=== PATIENT | female | born 1995 | race Caucasian/White ===

== ENCOUNTER 2018-09-08 01:19 | Emergency (ER) | payer SELFPAY ==
[~2018-09-08] VITALS: Ht 157.5 cm; Wt 95.8 kg
[2018-09-08 01:26] VITALS: BP 139/95; PULSE 119; RESP 18; Ht 157.5 cm; Wt 95.8 kg
== END 2018-09-08 04:09 | disposition left against medical advice (07) ==
LOC: FTE 01:19
DX: Z53.21 Procedure and treatment not carried out due to patient leaving prior to being seen by health care provider (principal)